=== PATIENT | female | born 1970 | race Caucasian/White ===

== ENCOUNTER 2018-12-29 08:44 | Emergency (ER) | payer OTHER ==
[~2018-12-29] VITALS: Ht 162.6 cm; Wt 93.0 kg
[2018-12-29 09:08] LABS: ABSOLUTE BASOPHILS 0.1 thou/uL (0.0-0.2); ABSOLUTE EOSINOPHILS 0.3 thou/uL (0.0-0.7); ABSOLUTE LYMPHOCYTES 2.5 thou/uL (0.8-5.3); ABSOLUTE MONOCYTES 0.4 thou/uL (0.0-1.2); ABSOLUTE NEUTROPHILS 4.4 thou/uL (1.6-8.1); BASOPHILS 1.2 %; EOSINOPHILS 3.9 %; HEMATOCRIT 40.8 % (37.0-47.0); HEMOGLOBIN 13.7 gm/dL (12.0-15.0); LYMPHOCYTES 32.3 %; MCH 28.3 pg (26.0-34.0); MCHC 33.5 g/dL (28.0-37.0); MCV 84.5 fL (80.0-100.0); MONOCYTES 4.9 %; MPV 9.4 fl. (7.2-11.1); NUCLEATED RBCS 0 /100WBC; PLATELET COUNT* 297 thou/uL (150-400); POLYS 57.7 %; RBC 4.82 mil/uL (4.20-5.00); RDW-CV 13.3 % (10.5-14.5); WBC 7.7 thou/uL (4.0-11.0)
[2018-12-29 09:22] LABS: APTT 26.9 Seconds (25.0-31.3); INR 0.9; PROTIME 9.6 Seconds (9.20-11.50)
[2018-12-29 09:30] LABS: ANION GAP 11 mmol/L (7-16); BUN 21 mg/dL (7-18); CALCIUM 9.6 mg/dL (8.5-10.1); CHLORIDE 105 mmol/L (98-107); CO2 24 mmol/L (21-32); CREATININE 0.9 mg/dL (0.6-1.3); GLUCOSE 132 mg/dL (70-99); POTASSIUM 3.7 mmol/L (3.5-5.1); SODIUM 140 mmol/L (136-145)
[2018-12-29 09:41] LABS: ALBUMIN 3.4 g/dL (3.4-5.0); LIPASE 178 U/L (73-393); MAGNESIUM 1.7 mg/dL (1.8-2.4); NT-PRO BRAIN NAT PEPTIDE 24 pg/mL (<300); SGOT 16 U/L (15-37); SGPT 25 U/L (30-65); TOTAL BILIRUBIN 0.3 mg/dL (<0.1-1.0); TOTAL PROTEIN 7.5 g/dL (6.4-8.2); TROPONIN-I LEVEL <0.06 ng/mL (<0.06)
[2018-12-29 10:04] VITALS: BP 144/103
[2018-12-29 12:33] LABS: ALKALINE PHOSPHATASE 50 U/L (46-116)
--- NOTE | 2018-12-29 17:58 | EKG ---
[place] [address] ELECTROCARDIOGRAM REPORT Name: STEVENHUGH JENKINS [id number] Admission: 12/29/18 Attend Phys: Discharge: 12/29/18 Date of : 74 Report #: [id number] THIS REPORT FOR: //name// [facility] ED Test Date: 2018-12-29 Test Time: 09:10:08 Pat Name: HUGH HARRIS Department: Room: Gender: F Nutrition Partner: STEPHANIE : 1970 Requested By: Ty Ortega Order Number: [id number] Reading MD: Devan Burt Measurements Intervals [place] Rate: 95 P: 48 MT: 178 QRS: 53 QRSD: 88 T: 11 QT: 382 QTc: 481 Interpretive Statements Sinus rhythm No previous ECG available for comparison Electronically Signed On 12-29-2018 17:58:40 CDT by Devan Burt [email or web address] <ELECTRONICALLY SIGNED> By: Devan Burt MD, [facility] 12/29/18 1758 0910 0910 Devan Burt MD, FACC /EPI
--- NOTE | 2018-12-29 17:58 | EKG ---
[place] [address] ELECTROCARDIOGRAM REPORT Name: HUGH HARRIS Room: [facility].#: [id number] Admission: 12/29/18 Attend Phys: Discharge: 12/29/18 Date of : 74 Report #: [id number] THIS REPORT FOR: //name// 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 : 1970 Requested By: Ty Ortega Order Number: [id number] MD: Devan Burt Measurements Intervals [place] Rate: 172 P: 0 MO: QRS: 59 QRSD: 124 T: -49 QT: 281 QTc: 476 Interpretive Statements Supraventricular tachycardia Repol abnrm suggests ischemia, diffuse leads Baseline wander in lead(s) V2,V6 No previous ECG available for comparison Electronically Signed On 12-29-2018 17:58:25 CDT by Devan Burt [email or web address] <ELECTRONICALLY SIGNED> By: Devan Burt MD, [facility] 12/29/18 1758 Devan Burt MD, FAC /EPI
== END 2018-12-29 10:04 | disposition home or self-care (01) ==
LOC: M.ERS 08:44
PROVIDERS: Family Medicine
DX: R00.0 Tachycardia, unspecified (principal)